=== PATIENT | male | born 1990 | race Caucasian/White ===

== ENCOUNTER 2022-04-25 09:17 | Inpatient (IN) | payer OTHER ==
[2022-04-25 09:34] VITALS: BMI 23.0
[2022-04-25] MEDS ORDERED: POLYETHYLENE GLYCOL (HEALTHYLAX) 3350 17 GM PACKET PO PRN (10:36)
[2022-04-25] MEDS ORDERED: NALOXONE HCL (KLOXXADO) 8 MG SPRAY NS PRN (10:36)
[2022-04-25] MEDS ORDERED: methaDONE HCL 10 MG TABLET (FOR DETOX USE ONLY) PO ONE (10:36)
[2022-04-25] MEDS ORDERED: NICOTINE POLACRILEX 2 MG GUM BUC PRN (10:36)
[2022-04-25] MEDS ORDERED: MAGNESIUM HYDROX 2400MG/30ML ORAL SUSPENSION 30 ML CUP PO PRN (10:36)
[2022-04-25] MEDS ORDERED: DICYCLOMINE HCL 10 MG CAPSULE PO PRN (10:36)
[2022-04-25] MEDS ORDERED: ACETAMINOPHEN 325 MG TABLET (FP) PO PRN ×2 (10:36)
[2022-04-25] MEDS ORDERED: BENZOCAINE/MENTHOL (CHLORASEPTIC ) LOZENGE MM PRN (10:36)
[2022-04-25] MEDS ORDERED: NICOTINE 10 MG CARTRIDGE (INHALER) IH PRN (10:36)
[2022-04-25] MEDS ORDERED: LOPERAMIDE HCL 2 MG CAPSULE PO PRN (10:36)
[2022-04-25] MEDS ORDERED: BISMUTH SUBSALICYLATE 524 MG/30 ML PO PRN (10:36)
[2022-04-25] MEDS ORDERED: methaDONE HCL 10 MG TABLET (FOR DETOX USE ONLY) ONE (11:08)
[2022-04-25] MEDS: METHOCARBAMOL 500 MG TABLET PO PRN ×2 (11:25→22:33)
[2022-04-25] MEDS: cloNIDine HCL 0.1 MG TABLET PO PRN (13:25)
[2022-04-25] MEDS: IBUPROFEN 600 MG TABLET (FP) PO PRN ×2 (13:25→22:33)
[2022-04-25] MEDS: IBUPROFEN 400 MG TABLET (FP) PO PRN (17:06)
[2022-04-25] MEDS: MELATONIN 5 MG TABLETS PO SCH (22:30)
[2022-04-25] MEDS: THIAMINE HCL 100 MG TABLET (FP) PO SCH (22:30)
[2022-04-26] MEDS: cloNIDine HCL 0.1 MG TABLET PO PRN (06:03)
[2022-04-26] MEDS: PRENATAL VITAMINS W/ FOLIC ACID TABLET (FP) PO SCH (11:44)
[2022-04-26] MEDS: METHOCARBAMOL 500 MG TABLET PO PRN (11:44)
[2022-04-26] MEDS: ASPIRIN 325 MG TABLET PO SCH (11:55)
[2022-04-26 12:35] LABS: HEMATOCRIT 37.4 % (35.4-49); HEMOGLOBIN 12.5 GM/dL (11.7-16.9); MCH 29.9 pg (25.7-33.7); MCHC 33.3 g/dl (32.0-35.9); MEAN CELL VOLUME 89.8 fl (80-96); PLATELET COUNT 273 10^3/uL (134-434); RBC 4.17 M/mm3 (4.00-5.60); RDW 13.7 % (11.9-15.9); WHITE BLOOD COUNT 5.6 K/mm3 (4.0-10.0)
[2022-04-26 13:43] LABS: ALBUMIN 2.9 g/dl (3.4-5.0); BLOOD UREA NITROGEN 15.2 mg/dL (7-18); HIV INTERPRETATION NEGATIVE (NEGATIVE)
[2022-04-26 13:44] LABS: CALCIUM 8.4 mg/dL (8.5-10.1)
[2022-04-26 13:46] LABS: CREATININE 0.8 mg/dL (0.55-1.3)
[2022-04-26 13:48] LABS: TOT PROT 5.8 g/dl (6.4-8.2)
[2022-04-26 13:49] LABS: BILIRUBIN,TOTAL 0.3 mg/dL (0.2-1)
[2022-04-26] MEDS: IBUPROFEN 400 MG TABLET (FP) PO PRN (17:33)
[2022-04-26] MEDS: MAG HYDROX/AL HYDROX/SIMETH 30 ML UNIT-DOSE CUP PO PRN (17:33)
[2022-04-26] MEDS ORDERED: TRIMETHOBENZAMIDE HCL 200MG/2ML INJ IM ONE (19:23)
[2022-04-26] MEDS: THIAMINE HCL 100 MG TABLET (FP) PO SCH (22:26)
[2022-04-26] MEDS: MELATONIN 5 MG TABLETS PO SCH (22:27)
[2022-04-27] MEDS: METHOCARBAMOL 500 MG TABLET PO PRN (10:00)
[2022-04-27] MEDS: PRENATAL VITAMINS W/ FOLIC ACID TABLET (FP) PO SCH (10:00)
[2022-04-27] MEDS ORDERED: methaDONE HCL 10 MG TABLET (FOR DETOX USE ONLY) PO ONE (10:00)
[2022-04-27] MEDS: ASPIRIN 325 MG TABLET PO SCH (10:02)
[2022-04-27] MEDS: IBUPROFEN 600 MG TABLET (FP) PO PRN (12:06)
[2022-04-27] MEDS: THIAMINE HCL 100 MG TABLET (FP) PO SCH (21:52)
[2022-04-27] MEDS: OLANZapine 10 MG TABLET PO SCH (21:52)
[2022-04-27] MEDS: MELATONIN 5 MG TABLETS PO SCH (21:54)
[2022-04-27] MEDS: MAG HYDROX/AL HYDROX/SIMETH 30 ML UNIT-DOSE CUP PO PRN (22:14)
[2022-04-28] MEDS: PRENATAL VITAMINS W/ FOLIC ACID TABLET (FP) PO SCH (10:04)
[2022-04-28] MEDS: METHOCARBAMOL 500 MG TABLET PO PRN (10:04)
[2022-04-28] MEDS: ASPIRIN 325 MG TABLET PO SCH (10:04)
[2022-04-28] MEDS: IBUPROFEN 600 MG TABLET (FP) PO PRN (14:00)
[2022-04-28] MEDS: OLANZapine 10 MG TABLET PO SCH (22:31)
[2022-04-28] MEDS: THIAMINE HCL 100 MG TABLET (FP) PO SCH (22:31)
[2022-04-28] MEDS: MELATONIN 5 MG TABLETS PO SCH (22:47)
[2022-04-29] MEDS ORDERED: methaDONE HCL 10 MG TABLET (FOR DETOX USE ONLY) PO ONE (10:00)
[2022-04-29] MEDS: PRENATAL VITAMINS W/ FOLIC ACID TABLET (FP) PO SCH (10:12)
[2022-04-29] MEDS: ASPIRIN 325 MG TABLET PO SCH (10:12)
[2022-04-29] MEDS: METHOCARBAMOL 500 MG TABLET PO PRN (10:13)
[2022-04-29] MEDS: MELATONIN 5 MG TABLETS PO SCH (23:21)
[2022-04-29] MEDS: OLANZapine 10 MG TABLET PO SCH (23:21)
[2022-04-29] MEDS: THIAMINE HCL 100 MG TABLET (FP) PO SCH (23:21)
[2022-04-30 09:35] VITALS: BP 95/61; PULSE 60; RESP 16; TEMP 98.3
[2022-04-30] MEDS: PRENATAL VITAMINS W/ FOLIC ACID TABLET (FP) PO SCH (10:26)
[2022-04-30] MEDS: ASPIRIN 325 MG TABLET PO SCH (10:26)
== END 2022-04-30 10:25 | disposition home or self-care (01) | DRG 773 ==
LOC: YASAS 09:17 → Y6N 11:04
PROVIDERS: ADMIT Allergy & Immunology; ATTEND Surgery
PROC: HZ2ZZZZ Detoxification Services for Substance Abuse Treatment (ICD-10-PCS; principal; 2022-04-25)
DX: F11.23 Opioid dependence with withdrawal (principal); F14.20 Cocaine dependence, uncomplicated; F17.210 Nicotine dependence, cigarettes, uncomplicated; F20.9 Schizophrenia, unspecified; F19.24 Other psychoactive substance dependence with psychoactive substance-induced mood disorder; Z86.19 Personal history of other infectious and parasitic diseases; Z59.00 Homelessness unspecified; Z56.0 Unemployment, unspecified; S82.891D Other fracture of right lower leg, subsequent encounter for closed fracture with routine healing; X58.XXXD Exposure to other specified factors, subsequent encounter
CPT/HCPCS: 36415; 80053; 83036; 85027; 86593; 86780; 87389; 93005; 93010; C9803-CS; U0003; U0005

== ENCOUNTER 2022-05-26 12:39 | Inpatient (IN) | payer OTHER ==
[2022-05-26 13:16] VITALS: BMI 22.5
[2022-05-26] MEDS ORDERED: cloNIDine HCL 0.1 MG TABLET PO ONE (13:52)
[2022-05-26] MEDS ORDERED: POLYETHYLENE GLYCOL (HEALTHYLAX) 3350 17 GM PACKET PO PRN (13:52)
[2022-05-26] MEDS ORDERED: BENZOCAINE/MENTHOL (CHLORASEPTIC ) LOZENGE MM PRN (13:52)
[2022-05-26] MEDS ORDERED: BISMUTH SUBSALICYLATE 262 MG/15 ML BTL PO PRN (13:52)
[2022-05-26] MEDS ORDERED: MAGNESIUM HYDROX 2400MG/30ML ORAL SUSPENSION 30 ML CUP PO PRN (13:52)
[2022-05-26] MEDS ORDERED: IBUPROFEN 400 MG TABLET (FP) PO PRN (13:52)
[2022-05-26] MEDS ORDERED: BUPRENORPHINE HCL 150 MCG, BUPRENORPHINE HCL 75 MCG BC ONE (13:52)
[2022-05-26] MEDS ORDERED: ACETAMINOPHEN 325 MG TABLET (FP) PO PRN (13:52)
[2022-05-26] MEDS ORDERED: MAG HYDROX/AL HYDROX/SIMETH 30 ML UNIT-DOSE CUP PO PRN (13:52)
[2022-05-26] MEDS ORDERED: DICYCLOMINE HCL 10 MG CAPSULE PO PRN (13:52)
[2022-05-26] MEDS ORDERED: BUPRENORPHINE HCL 150 MCG, BUPRENORPHINE HCL 75 MCG BC PRN (13:52)
[2022-05-26] MEDS ORDERED: ONDANSETRON *ODT* 4 MG TABLET SL PRN (13:52)
[2022-05-26] MEDS ORDERED: BENZONATATE 200 MG CAPSULE PO PRN (13:52)
[2022-05-26] MEDS ORDERED: NALOXONE HCL 0.4 MG/ML VIAL IM PRN (13:52)
[2022-05-26] MEDS ORDERED: IBUPROFEN 600 MG TABLET (FP) PO PRN (13:52)
[2022-05-26] MEDS ORDERED: LOPERAMIDE HCL 2 MG CAPSULE PO PRN (13:52)
[2022-05-26] MEDS ORDERED: guaiFENesin 600 MG TABLET.ER (FP) PO PRN (13:52)
[2022-05-26] MEDS ORDERED: NALOXONE HCL (KLOXXADO) 8 MG SPRAY NS PRN (13:52)
[2022-05-26] MEDS ORDERED: NICOTINE 10 MG CARTRIDGE (INHALER) IH PRN (13:52)
[2022-05-26] MEDS ORDERED: cloNIDine HCL 0.1 MG TABLET ONE (14:25)
[2022-05-26] MEDS ORDERED: BUPRENORPHINE HCL 150 MCG FILM BC ONE (14:25)
[2022-05-26] MEDS ORDERED: BUPRENORPHINE HCL 75 MCG FILM BC ONE (14:25)
[2022-05-26] MEDS: PRENATAL VITAMINS W/ FOLIC ACID TABLET (FP) PO SCH (14:29)
[2022-05-26] MEDS: NICOTINE 14 MG/24 HOURS TOPICAL PATCH TD SCH (14:33)
[2022-05-26] MEDS: diazePAM 5 MG TABLET PO PRN (17:12)
[2022-05-26 17:17] LABS: HEMATOCRIT 40.8 % (35.4-49); MCH 29.9 pg (25.7-33.7); MCHC 34.4 g/dl (32.0-35.9); MEAN CELL VOLUME 87.1 fl (80-96); MEAN PLT VOLUME 9.9 fl (7.5-11.1); PLATELET COUNT 263 10^3/uL (134-434); RBC 4.69 M/mm3 (4.00-5.60); RDW 14.3 % (11.9-15.9); WHITE BLOOD COUNT 5.7 K/mm3 (4.0-10.0)
[2022-05-26 17:47] LABS: CALCIUM 9.1 mg/dL (8.5-10.1)
[2022-05-26 17:48] LABS: BLOOD UREA NITROGEN 15.8 mg/dL (7-18)
[2022-05-26 17:49] LABS: ALBUMIN 3.5 g/dl (3.4-5.0)
[2022-05-26 17:51] LABS: CREATININE 0.7 mg/dL (0.55-1.3)
[2022-05-26 17:52] LABS: BILIRUBIN,TOTAL 0.3 mg/dL (0.2-1); TOT PROT 6.7 g/dl (6.4-8.2)
[2022-05-26] MEDS ORDERED: cloNIDine HCL 0.1 MG TABLET PO PRN (17:52)
[2022-05-26] MEDS: MELATONIN 5 MG TABLETS PO SCH (23:49)
[2022-05-26] MEDS: THIAMINE HCL 100 MG TABLET (FP) PO SCH (23:49)
[2022-05-27] MEDS ORDERED: BUPRENORPHINE HCL 150 MCG, BUPRENORPHINE HCL 75 MCG BC PRN
[2022-05-27] MEDS: BUPRENORPHINE HCL 150 MCG, BUPRENORPHINE HCL 75 MCG BC SCH ×2 (06:23→17:43)
[2022-05-27] MEDS: diazePAM 5 MG TABLET PO PRN (10:12)
[2022-05-27] MEDS: hydrOXYzine PAMOATE 25 MG CAPSULE (FP) PO PRN (10:12)
[2022-05-27] MEDS: METHOCARBAMOL 500 MG TABLET PO PRN ×2 (10:12→22:52)
[2022-05-27] MEDS: PRENATAL VITAMINS W/ FOLIC ACID TABLET (FP) PO SCH (11:08)
[2022-05-27] MEDS: NICOTINE 14 MG/24 HOURS TOPICAL PATCH TD SCH (11:08)
[2022-05-27] MEDS: THIAMINE HCL 100 MG TABLET (FP) PO SCH (22:51)
[2022-05-27] MEDS: MELATONIN 5 MG TABLETS PO SCH (22:51)
[2022-05-27] MEDS: OLANZapine 10 MG TABLET PO SCH (22:51)
[2022-05-28] MEDS: BUPRENORPHINE HCL 450 MCG FILM BC SCH ×2 (06:18→17:37)
[2022-05-28] MEDS: NICOTINE 14 MG/24 HOURS TOPICAL PATCH TD SCH (11:05)
[2022-05-28] MEDS: PRENATAL VITAMINS W/ FOLIC ACID TABLET (FP) PO SCH (11:05)
[2022-05-28] MEDS: diazePAM 5 MG TABLET PO PRN (11:14)
[2022-05-28] MEDS: METHOCARBAMOL 500 MG TABLET PO PRN (11:14)
[2022-05-28] MEDS: OLANZapine 10 MG TABLET PO SCH (23:21)
[2022-05-28] MEDS: MELATONIN 5 MG TABLETS PO SCH (23:21)
[2022-05-28] MEDS: THIAMINE HCL 100 MG TABLET (FP) PO SCH (23:21)
[2022-05-29] MEDS: BUPRENORPHINE/NALOXONE 4 MG/1 MG FILM PACKET SL SCH ×2 (05:50→17:07)
[2022-05-29] MEDS: METHOCARBAMOL 500 MG TABLET PO PRN (10:31)
[2022-05-29] MEDS: hydrOXYzine PAMOATE 25 MG CAPSULE (FP) PO PRN ×2 (10:31→22:26)
[2022-05-29] MEDS: PRENATAL VITAMINS W/ FOLIC ACID TABLET (FP) PO SCH (10:31)
[2022-05-29] MEDS: NICOTINE 14 MG/24 HOURS TOPICAL PATCH TD SCH (10:33)
[2022-05-29 18:06] VITALS: RESP 16
[2022-05-29 20:49] VITALS: BP 107/68; PULSE 79; TEMP 97.1
[2022-05-29] MEDS: THIAMINE HCL 100 MG TABLET (FP) PO SCH (22:24)
[2022-05-29] MEDS: MELATONIN 5 MG TABLETS PO SCH (22:24)
[2022-05-29] MEDS: OLANZapine 10 MG TABLET PO SCH (22:24)
[2022-05-30] MEDS ORDERED: BUPRENORPHINE/NALOXONE 8 MG/2 MG FILM PACKET SL ONE (06:00)
[2022-05-30] MEDS: PRENATAL VITAMINS W/ FOLIC ACID TABLET (FP) PO SCH (09:46)
[2022-05-30] MEDS: NICOTINE 14 MG/24 HOURS TOPICAL PATCH TD SCH (09:46)
== END 2022-05-30 12:30 | disposition home or self-care (01) | DRG 773 ==
LOC: YASAS 12:39 → Y6N 14:03
PROVIDERS: ADMIT Allergy & Immunology; ATTEND Surgery
PROC: HZ2ZZZZ Detoxification Services for Substance Abuse Treatment (ICD-10-PCS; principal; 2022-05-26)
DX: F11.23 Opioid dependence with withdrawal (principal); F14.20 Cocaine dependence, uncomplicated; F12.20 Cannabis dependence, uncomplicated; F17.210 Nicotine dependence, cigarettes, uncomplicated; F19.280 Other psychoactive substance dependence with psychoactive substance-induced anxiety disorder; F19.282 Other psychoactive substance dependence with psychoactive substance-induced sleep disorder; F20.9 Schizophrenia, unspecified; Z86.19 Personal history of other infectious and parasitic diseases; Z91.410 Personal history of adult physical and sexual abuse
CPT/HCPCS: 36415; 80053; 83036; 85027; 86593; 86780; C9803-CS; Q0162; U0003; U0005

== ENCOUNTER 2022-06-15 21:54 | Inpatient (IN) | payer OTHER ==
[2022-06-15 22:29] VITALS: BMI 22.2
[2022-06-16] MEDS ORDERED: POLYETHYLENE GLYCOL (HEALTHYLAX) 3350 17 GM PACKET PO PRN (00:23)
[2022-06-16] MEDS ORDERED: IBUPROFEN 600 MG TABLET (FP) PO PRN (00:23)
[2022-06-16] MEDS ORDERED: NICOTINE POLACRILEX 2 MG GUM BUC PRN (00:23)
[2022-06-16] MEDS ORDERED: AMMONIUM LACTATE 12% LOTION 225 GM BOTTLE TP PRN (00:23)
[2022-06-16] MEDS ORDERED: MAG HYDROX/AL HYDROX/SIMETH 30 ML UNIT-DOSE CUP PO PRN (00:23)
[2022-06-16] MEDS ORDERED: BENZOCAINE/MENTHOL (CHLORASEPTIC ) LOZENGE MM PRN (00:23)
[2022-06-16] MEDS ORDERED: IBUPROFEN 400 MG TABLET (FP) PO PRN (00:23)
[2022-06-16] MEDS ORDERED: BENZONATATE 200 MG CAPSULE PO PRN (00:23)
[2022-06-16] MEDS ORDERED: NALOXONE HCL (KLOXXADO) 8 MG SPRAY NS PRN (00:23)
[2022-06-16] MEDS ORDERED: LOPERAMIDE HCL 2 MG CAPSULE PO PRN (00:23)
[2022-06-16] MEDS ORDERED: COLLOIDAL OATMEAL 1 BAR EACH TP PRN (00:23)
[2022-06-16] MEDS ORDERED: ACETAMINOPHEN 325 MG TABLET (FP) PO PRN (00:23)
[2022-06-16] MEDS ORDERED: guaiFENesin 600 MG TABLET.ER (FP) PO PRN (00:23)
[2022-06-16] MEDS ORDERED: MAGNESIUM HYDROX 2400MG/30ML ORAL SUSPENSION 30 ML CUP PO PRN (00:23)
[2022-06-16] MEDS ORDERED: NALOXONE HCL 0.4 MG/ML VIAL IM PRN (00:23)
[2022-06-16] MEDS: PRENATAL VITAMINS W/ FOLIC ACID TABLET (FP) PO SCH ×2 (10:00→10:24)
[2022-06-16] MEDS: NICOTINE 21 MG/24 HOURS TOPICAL PATCH TD SCH (10:00)
[2022-06-16 10:58] LABS: HEMATOCRIT 40.9 % (35.4-49); MCH 30.1 pg (25.7-33.7); MCHC 34.3 g/dl (32.0-35.9); MEAN CELL VOLUME 87.7 fl (80-96); MEAN PLT VOLUME 9.9 fl (7.5-11.1); PLATELET COUNT 334 10^3/uL (134-434); RBC 4.66 M/mm3 (4.00-5.60); RDW 14.4 % (11.9-15.9); WHITE BLOOD COUNT 6.1 K/mm3 (4.0-10.0)
[2022-06-16 11:44] LABS: CALCIUM 8.7 mg/dL (8.5-10.1)
[2022-06-16 11:45] LABS: ALBUMIN 3.3 g/dl (3.4-5.0); BLOOD UREA NITROGEN 14.8 mg/dL (7-18)
[2022-06-16 11:48] LABS: CREATININE 0.8 mg/dL (0.55-1.3)
[2022-06-16 11:49] LABS: BILIRUBIN,TOTAL 0.6 mg/dL (0.2-1)
[2022-06-16 11:50] LABS: TOT PROT 6.3 g/dl (6.4-8.2)
[2022-06-16] MEDS: THIAMINE HCL 100 MG TABLET (FP) PO SCH (21:15)
[2022-06-16] MEDS: MELATONIN 5 MG TABLETS PO SCH (21:15)
[2022-06-16] MEDS: OLANZapine 10 MG TABLET PO SCH (21:15)
[2022-06-17] MEDS: PRENATAL VITAMINS W/ FOLIC ACID TABLET (FP) PO SCH (10:05)
[2022-06-17] MEDS: NICOTINE 21 MG/24 HOURS TOPICAL PATCH TD SCH (10:05)
[2022-06-17 15:10] LABS: URINE APPEARANCE CLOUDY; URINE COLOR YELLOW
[2022-06-17 15:11] LABS: URINE BILIRUBIN NEGATIVE (NEGATIVE); URINE GLUCOSE (UA) NEGATIVE (NEGATIVE); URINE KETONE NEGATIVE (NEGATIVE); URINE LEUK ESTERASE TRACE (NEGATIVE); URINE NITRITE NEGATIVE (NEGATIVE); URINE PROTEIN NEGATIVE (NEGATIVE); URINE UROBILINOGEN 0.2 mg/dL (0.2-1.0)
[2022-06-17 15:30] LABS: EPI CELLS 9 /uL (0-25.1); HYALINE CASTS 4 /uL (0-3.1); URINE BACTERIA 10 /uL (0-1359); URINE RBC 3 /uL (0-23.9); URINE WBC 38 /uL (0-25.8)
[2022-06-17] MEDS: MELATONIN 5 MG TABLETS PO SCH (21:12)
[2022-06-17] MEDS: THIAMINE HCL 100 MG TABLET (FP) PO SCH (21:12)
[2022-06-17] MEDS: OLANZapine 10 MG TABLET PO SCH (21:12)
[2022-06-18 06:57] VITALS: BP 130/72; PULSE 83; RESP 18; TEMP 97.7
[2022-06-18] MEDS: NICOTINE 21 MG/24 HOURS TOPICAL PATCH TD SCH (10:00)
[2022-06-18] MEDS: PRENATAL VITAMINS W/ FOLIC ACID TABLET (FP) PO SCH (10:00)
== END 2022-06-18 10:16 | disposition home or self-care (01) | DRG 772 ==
LOC: YASAS 21:54 → Y5N 06-16 02:04
PROVIDERS: ADMIT Allergy & Immunology; ATTEND Surgery
PROC: HZ42ZZZ Group Counseling for Substance Abuse Treatment, Cognitive-Behavioral (ICD-10-PCS; principal; 2022-06-16)
DX: F11.20 Opioid dependence, uncomplicated (principal); F14.20 Cocaine dependence, uncomplicated; F13.20 Sedative, hypnotic or anxiolytic dependence, uncomplicated; F12.20 Cannabis dependence, uncomplicated; F17.210 Nicotine dependence, cigarettes, uncomplicated; F19.282 Other psychoactive substance dependence with psychoactive substance-induced sleep disorder; F19.24 Other psychoactive substance dependence with psychoactive substance-induced mood disorder; F31.9 Bipolar disorder, unspecified; F20.9 Schizophrenia, unspecified; Z86.19 Personal history of other infectious and parasitic diseases
CPT/HCPCS: 36415; 80053; 81003; 85027; 86593; 86780; C9803-CS; U0003; U0005

== ENCOUNTER 2023-02-01 14:08 | Inpatient (IN) | payer OTHER ==
[2023-02-01 14:43] VITALS: BMI 20.3
[2023-02-01] MEDS ORDERED: BUPRENORPHINE HCL 150 MCG, BUPRENORPHINE HCL 75 MCG BC ONE (15:27)
[2023-02-01] MEDS ORDERED: ACETAMINOPHEN 325 MG TABLET (FP) PO PRN (15:27)
[2023-02-01] MEDS ORDERED: MAG HYDROX/AL HYDROX/SIMETH 30 ML UNIT-DOSE CUP PO PRN (15:27)
[2023-02-01] MEDS ORDERED: diazePAM 5 MG TABLET PO PRN (15:27)
[2023-02-01] MEDS ORDERED: LOPERAMIDE HCL 2 MG CAPSULE PO PRN (15:27)
[2023-02-01] MEDS ORDERED: BISMUTH SUBSALICYLATE 262 MG/15 ML BTL PO PRN (15:27)
[2023-02-01] MEDS ORDERED: MAGNESIUM HYDROX 2400MG/30ML ORAL SUSPENSION 30 ML CUP PO PRN (15:27)
[2023-02-01] MEDS ORDERED: NALOXONE HCL 0.4 MG/ML VIAL IM PRN (15:27)
[2023-02-01] MEDS ORDERED: BUPRENORPHINE HCL 150 MCG, BUPRENORPHINE HCL 75 MCG BC PRN (15:27)
[2023-02-01] MEDS ORDERED: guaiFENesin 600 MG TABLET.ER (FP) PO PRN (15:27)
[2023-02-01] MEDS ORDERED: NALOXONE HCL (KLOXXADO) 8 MG SPRAY NS PRN (15:27)
[2023-02-01] MEDS ORDERED: cloNIDine HCL 0.1 MG TABLET PO ONE (15:27)
[2023-02-01] MEDS ORDERED: POLYETHYLENE GLYCOL (HEALTHYLAX) 3350 17 GM PACKET PO PRN (15:27)
[2023-02-01] MEDS ORDERED: ONDANSETRON *ODT* 4 MG TABLET SL PRN (15:27)
[2023-02-01] MEDS ORDERED: BENZONATATE 200 MG CAPSULE PO PRN (15:27)
[2023-02-01] MEDS ORDERED: hydrOXYzine PAMOATE 25 MG CAPSULE (FP) PO PRN (15:27)
[2023-02-01] MEDS ORDERED: IBUPROFEN 400 MG TABLET (FP) PO PRN (15:27)
[2023-02-01] MEDS ORDERED: DICYCLOMINE HCL 10 MG CAPSULE PO PRN (15:27)
[2023-02-01] MEDS ORDERED: BUPRENORPHINE HCL 150 MCG FILM BC ONE (18:21)
[2023-02-01] MEDS ORDERED: cloNIDine HCL 0.1 MG TABLET ONE (18:22)
[2023-02-01] MEDS ORDERED: BUPRENORPHINE HCL 75 MCG FILM BC ONE (18:22)
[2023-02-01] MEDS: NICOTINE 14 MG/24 HOURS TOPICAL PATCH TD SCH (18:44)
[2023-02-01] MEDS: PRENATAL VITAMINS W/ FOLIC ACID TABLET (FP) PO SCH (18:55)
[2023-02-01] MEDS ORDERED: cloNIDine HCL 0.1 MG TABLET PO PRN (19:27)
[2023-02-01] MEDS: THIAMINE HCL 100 MG TABLET (FP) PO SCH (22:46)
[2023-02-01] MEDS: MELATONIN 5 MG TABLETS PO SCH (22:47)
[2023-02-02] MEDS ORDERED: BUPRENORPHINE HCL 150 MCG, BUPRENORPHINE HCL 75 MCG BC PRN
[2023-02-02] MEDS: BUPRENORPHINE HCL 150 MCG, BUPRENORPHINE HCL 75 MCG BC SCH ×2 (05:29→17:16)
[2023-02-02] MEDS: PRENATAL VITAMINS W/ FOLIC ACID TABLET (FP) PO SCH (10:19)
[2023-02-02] MEDS: NICOTINE 14 MG/24 HOURS TOPICAL PATCH TD SCH (10:20)
[2023-02-02 11:42] LABS: POTASSIUM 3.9 mmol/L (3.5-5.1)
[2023-02-02 11:47] LABS: CALCIUM 8.2 mg/dL (8.5-10.1)
[2023-02-02 11:48] LABS: ALBUMIN 3.1 g/dl (3.4-5.0); BLOOD UREA NITROGEN 8.5 mg/dL (7-18)
[2023-02-02 11:51] LABS: CREATININE 0.6 mg/dL (0.55-1.3)
[2023-02-02 11:52] LABS: BILIRUBIN,TOTAL 0.4 mg/dL (0.2-1); TOT PROT 5.8 g/dl (6.4-8.2)
[2023-02-02 12:09] LABS: HEMATOCRIT 43.7 % (35.4-49); HEMOGLOBIN 14.6 GM/dL (11.7-16.9); MCH 29.1 pg (25.7-33.7); MCHC 33.3 g/dl (32.0-35.9); MEAN CELL VOLUME 87.4 fl (80-96); MEAN PLT VOLUME 9.3 fl (7.5-11.1); PLATELET COUNT 254 10^3/uL (134-434); RBC 5.01 M/mm3 (4.00-5.60); RDW 14.9 % (11.9-15.9); WHITE BLOOD COUNT 6.6 K/mm3 (4.0-10.0)
[2023-02-02] MEDS: BENZOCAINE/MENTHOL (CHLORASEPTIC ) LOZENGE MM PRN (19:14)
[2023-02-02] MEDS: OLANZapine 10 MG TABLET PO SCH (22:30)
[2023-02-02] MEDS: THIAMINE HCL 100 MG TABLET (FP) PO SCH (22:30)
[2023-02-02] MEDS: MELATONIN 5 MG TABLETS PO SCH (22:31)
[2023-02-02] MEDS: IBUPROFEN 600 MG TABLET (FP) PO PRN (23:10)
[2023-02-03] MEDS: BUPRENORPHINE HCL 450 MCG FILM BC SCH ×2 (05:36→17:22)
[2023-02-03] MEDS: METHOCARBAMOL 500 MG TABLET PO PRN (10:38)
[2023-02-03] MEDS: PRENATAL VITAMINS W/ FOLIC ACID TABLET (FP) PO SCH (10:38)
[2023-02-03] MEDS: NICOTINE 14 MG/24 HOURS TOPICAL PATCH TD SCH (10:38)
[2023-02-03] MEDS: OLANZapine 10 MG TABLET PO SCH (22:26)
[2023-02-03] MEDS: THIAMINE HCL 100 MG TABLET (FP) PO SCH (22:26)
[2023-02-03] MEDS: MELATONIN 5 MG TABLETS PO SCH (22:27)
[2023-02-04] MEDS: BUPRENORPHINE/NALOXONE 4 MG/1 MG FILM PACKET SL SCH ×2 (06:39→17:56)
[2023-02-04] MEDS: NICOTINE 14 MG/24 HOURS TOPICAL PATCH TD SCH (10:41)
[2023-02-04] MEDS: PRENATAL VITAMINS W/ FOLIC ACID TABLET (FP) PO SCH (10:41)
[2023-02-04] MEDS: METHOCARBAMOL 500 MG TABLET PO PRN ×2 (10:42→22:06)
[2023-02-04] MEDS: BENZOCAINE/MENTHOL (CHLORASEPTIC ) LOZENGE MM PRN (10:44)
[2023-02-04] MEDS: IBUPROFEN 600 MG TABLET (FP) PO PRN (22:05)
[2023-02-04] MEDS: MELATONIN 5 MG TABLETS PO SCH (22:05)
[2023-02-04] MEDS: THIAMINE HCL 100 MG TABLET (FP) PO SCH (22:06)
[2023-02-04] MEDS: OLANZapine 10 MG TABLET PO SCH (22:06)
[2023-02-05] MEDS ORDERED: BUPRENORPHINE/NALOXONE 8 MG/2 MG FILM PACKET SL ONE (06:00)
[2023-02-05 09:32] VITALS: BP 115/55; PULSE 80; RESP 18; TEMP 97.1
[2023-02-05] MEDS: PRENATAL VITAMINS W/ FOLIC ACID TABLET (FP) PO SCH (10:19)
[2023-02-05] MEDS: NICOTINE 14 MG/24 HOURS TOPICAL PATCH TD SCH (10:19)
== END 2023-02-05 12:45 | disposition other institution (70) | DRG 773 ==
LOC: YASAS 14:08 → Y6N 17:37
PROVIDERS: ADMIT Allergy & Immunology; ATTEND Surgery
PROC: HZ2ZZZZ Detoxification Services for Substance Abuse Treatment (ICD-10-PCS; principal; 2023-02-01)
DX: F11.23 Opioid dependence with withdrawal (principal); F14.20 Cocaine dependence, uncomplicated; F12.20 Cannabis dependence, uncomplicated; F17.210 Nicotine dependence, cigarettes, uncomplicated; F31.9 Bipolar disorder, unspecified; F20.9 Schizophrenia, unspecified; F19.282 Other psychoactive substance dependence with psychoactive substance-induced sleep disorder; F19.24 Other psychoactive substance dependence with psychoactive substance-induced mood disorder; Z86.19 Personal history of other infectious and parasitic diseases; Z56.0 Unemployment, unspecified; Z59.00 Homelessness unspecified
CPT/HCPCS: 36415; 80053; 85027; 86593; 86780; 87635; 93005; 93010; Q0162

== ENCOUNTER 2023-04-28 13:39 | Inpatient (IN) | payer OTHER ==
[2023-04-28 14:53] VITALS: BMI 21.4
[2023-04-28] MEDS ORDERED: BENZONATATE 200 MG CAPSULE PO PRN (15:49)
[2023-04-28] MEDS ORDERED: guaiFENesin 600 MG TABLET.ER (FP) PO PRN (15:49)
[2023-04-28] MEDS ORDERED: BENZOCAINE/MENTHOL (CHLORASEPTIC ) LOZENGE MM PRN (15:49)
[2023-04-28] MEDS ORDERED: NICOTINE POLACRILEX 2 MG GUM BUC PRN (15:49)
[2023-04-28] MEDS ORDERED: NALOXONE HCL (KLOXXADO) 8 MG SPRAY NS PRN (15:49)
[2023-04-28] MEDS ORDERED: NALOXONE HCL 0.4 MG/ML VIAL IM PRN (15:49)
[2023-04-28] MEDS ORDERED: IBUPROFEN 400 MG TABLET (FP) PO PRN (15:49)
[2023-04-28] MEDS ORDERED: POLYETHYLENE GLYCOL (HEALTHYLAX) 3350 17 GM PACKET PO PRN (15:49)
[2023-04-28] MEDS ORDERED: LOPERAMIDE HCL 2 MG CAPSULE PO PRN (15:49)
[2023-04-28] MEDS: THIAMINE HCL 100 MG TABLET (FP) PO SCH (22:11)
[2023-04-28] MEDS: MELATONIN 5 MG TABLETS PO SCH (22:11)
[2023-04-29] MEDS: PRENATAL VITAMINS W/ FOLIC ACID TABLET (FP) PO SCH (10:06)
[2023-04-29] MEDS: FLU VACCINE (FLULAVAL) PF 60 MCG/0.5 ML SYRINGE 2023-2024 IM ONE (12:19)
[2023-04-29 12:49] LABS: HEMATOCRIT 40.7 % (35.4-49); HEMOGLOBIN 13.9 GM/dL (11.7-16.9); MCH 29.9 pg (25.7-33.7); MCHC 34.1 g/dl (32.0-35.9); MEAN CELL VOLUME 87.6 fl (80-96); MEAN PLT VOLUME 9.9 fl (7.5-11.1); PLATELET COUNT 252 10^3/uL (134-434); RBC 4.64 M/mm3 (4.00-5.60); RDW 13.9 % (11.9-15.9)
[2023-04-29 13:22] LABS: POTASSIUM 3.6 mmol/L (3.5-5.1)
[2023-04-29 13:29] LABS: CALCIUM 8.8 mg/dL (8.5-10.1)
[2023-04-29 13:30] LABS: ALBUMIN 3.3 g/dl (3.4-5.0); BLOOD UREA NITROGEN 6.8 mg/dL (7-18)
[2023-04-29 13:33] LABS: CREATININE 0.6 mg/dL (0.55-1.3)
[2023-04-29 13:34] LABS: BILIRUBIN,TOTAL 0.6 mg/dL (0.2-1)
[2023-04-29] MEDS: BUPRENORPHINE/NALOXONE 8 MG/2 MG FILM PACKET SL SCH (14:46)
[2023-05-01] MEDS: IBUPROFEN 600 MG TABLET (FP) PO PRN (11:17)
[2023-05-02 14:48] LABS: EPI CELLS 13 /uL (0-25.1); HYALINE CASTS 7 /uL (0-3.1); URINE APPEARANCE CLEAR; URINE BACTERIA 16 /uL (0-1359); URINE BILIRUBIN NEGATIVE (NEGATIVE); URINE COLOR YELLOW; URINE GLUCOSE (UA) NEGATIVE (NEGATIVE); URINE KETONE NEGATIVE (NEGATIVE); URINE LEUK ESTERASE 1+ (NEGATIVE); URINE NITRITE NEGATIVE (NEGATIVE); URINE PROTEIN NEGATIVE (NEGATIVE); URINE RBC 3 /uL (0-23.9); URINE WBC 49 /uL (0-25.8)
[2023-05-04] MEDS: TUBERCULIN PPD 5 TU/0.1ML VIAL ID ONE (13:36)
[2023-05-08] MEDS: MAGNESIUM HYDROX 2400MG/30ML ORAL SUSPENSION 30 ML CUP PO PRN (18:18)
[2023-05-09] MEDS: hydrOXYzine PAMOATE 25 MG CAPSULE (FP) PO PRN (01:38)
[2023-05-09] MEDS: MELATONIN 5 MG TABLETS PO ONE (01:38)
[2023-05-09] MEDS ORDERED: HYDROCORTISONE 1% TOPICAL LOTION 118 ML BOTTLE TP PRN (15:05)
[2023-05-09] MEDS: CLOTRIMAZOLE/BETAMET DIPROP TOPICAL CREAM 45 GM TUBE TP SCH (21:51)
[2023-05-09] MEDS ORDERED: CLOTRIMAZOLE/BETAMET DIPROP TOPICAL CREAM 45 GM TUBE TP SCH (22:00)
[2023-05-10] MEDS: OLANZapine 7.5 MG TABLET PO SCH (21:26)
[2023-05-16] MEDS ORDERED: OLANZapine 5 MG TABLET PO SCH (22:14)
[2023-05-16] MEDS: OLANZapine 5 MG TABLET PO SCH (22:30)
[2023-05-17] MEDS: MAG HYDROX/AL HYDROX/SIMETH 30 ML UNIT-DOSE CUP PO PRN (20:23)
[2023-05-25 16:37] VITALS: RESP 18
[2023-05-25] MEDS: ACETAMINOPHEN 325 MG TABLET (FP) PO PRN (16:37)
[2023-05-25] MEDS: FAMOTIDINE 20 MG TABLET PO ONE (17:13)
[2023-05-25] MEDS: BUPRENORPHINE/NALOXONE 8 MG/2 MG FILM PACKET SL SCH (21:10)
[2023-05-26 06:52] VITALS: BP 104/69; PULSE 95; TEMP 97.5
== END 2023-05-26 10:20 | disposition home or self-care (01) | DRG 772 ==
LOC: YASAS 13:39 → Y3NR 18:38 → Y5N 04-29 12:09
PROVIDERS: ADMIT Allergy & Immunology; ATTEND Psychiatry & Neurology Pain Medicine
PROC: HZ42ZZZ Group Counseling for Substance Abuse Treatment, Cognitive-Behavioral (ICD-10-PCS; principal; 2023-04-28)
DX: F11.20 Opioid dependence, uncomplicated (principal); F12.20 Cannabis dependence, uncomplicated; F15.10 Other stimulant abuse, uncomplicated; F17.210 Nicotine dependence, cigarettes, uncomplicated; F31.9 Bipolar disorder, unspecified; F20.9 Schizophrenia, unspecified; F19.24 Other psychoactive substance dependence with psychoactive substance-induced mood disorder; L30.4 Erythema intertrigo; Z86.19 Personal history of other infectious and parasitic diseases; Z59.02 Unsheltered homelessness; Z56.0 Unemployment, unspecified
CPT/HCPCS: 0241U-QW; 36415; 80053; 80305; 81003; 85027; 86593; 86780

== ENCOUNTER 2024-05-25 10:08 | Inpatient (IN) | payer OTHER ==
[2024-05-25 10:33] VITALS: BMI 26.7
[2024-05-25] MEDS ORDERED: POLYETHYLENE GLYCOL (HEALTHYLAX) 3350 17 GM PACKET PO PRN (12:10)
[2024-05-25] MEDS ORDERED: NALOXONE (NARCAN) HCL 4 MG/0.1 ML SPRAY NS PRN (12:10)
[2024-05-25] MEDS ORDERED: BISMUTH SUBSALICYLATE 524 MG/30 ML PO PRN (12:10)
[2024-05-25] MEDS ORDERED: LOPERAMIDE HCL 2 MG CAPSULE PO PRN (12:10)
[2024-05-25] MEDS ORDERED: BENZOCAINE/MENTHOL (CHLORASEPTIC ) LOZENGE MM PRN (12:10)
[2024-05-25] MEDS ORDERED: MAGNESIUM HYDROX 2400MG/30ML ORAL SUSPENSION 30 ML CUP PO PRN (12:10)
[2024-05-25] MEDS ORDERED: guaiFENesin 600 MG TABLET.ER (FP) PO PRN (12:10)
[2024-05-25] MEDS ORDERED: DICYCLOMINE HCL 10 MG CAPSULE PO PRN (12:10)
[2024-05-25] MEDS ORDERED: ONDANSETRON *ODT* 4 MG TABLET SL PRN (12:10)
[2024-05-25] MEDS ORDERED: BENZONATATE 200 MG CAPSULE PO PRN (12:10)
[2024-05-25] MEDS ORDERED: IBUPROFEN 400 MG TABLET (FP) PO PRN (12:10)
[2024-05-25] MEDS ORDERED: ACETAMINOPHEN 325 MG TABLET (FP) PO PRN (12:10)
[2024-05-25] MEDS ORDERED: methaDONE HCL 10 MG TABLET (FOR DETOX USE ONLY) ONE (12:31)
[2024-05-25] MEDS: methaDONE HCL 10 MG TABLET PO ONE (12:35)
[2024-05-25] MEDS: cloNIDine HCL 0.1 MG TABLET PO SCH (13:53)
[2024-05-25] MEDS: hydrOXYzine PAMOATE 25 MG CAPSULE (FP) PO PRN (17:09)
[2024-05-25] MEDS ORDERED: cloNIDine HCL 0.1 MG TABLET PO SCH (18:00)
[2024-05-25] MEDS: MAG HYDROX/AL HYDROX/SIMETH 30 ML UNIT-DOSE CUP PO PRN (18:33)
[2024-05-25] MEDS: NICOTINE POLACRILEX 2 MG GUM BUC PRN (18:35)
[2024-05-25] MEDS: METHOCARBAMOL 500 MG TABLET PO PRN (22:32)
[2024-05-25] MEDS: MELATONIN 5 MG TABLETS PO SCH (22:32)
[2024-05-25] MEDS: THIAMINE 100 MG TABLET PO SCH (22:32)
[2024-05-25] MEDS: methaDONE HCL 10 MG TABLET PO PRN (22:33)
[2024-05-26] MEDS ORDERED: methaDONE HCL 10 MG TABLET PO ONE (10:00)
[2024-05-26] MEDS: PRENATAL VITAMINS W/ FOLIC ACID TABLET (FP) PO SCH (10:07)
[2024-05-26] MEDS: methaDONE HCL 10 MG TABLET PO ONE (10:07)
[2024-05-26 13:25] LABS: HEMATOCRIT 40.1 % (40.1-51.0); HEMOGLOBIN 12.8 g/dL (13.7-17.5); MCHC 31.9 g/dl (32.3-36.5); MEAN CELL VOLUME 86.8 fl (79.0-92.2); MEAN PLT VOLUME 11.7 fl (9.4-12.4); PLATELET COUNT 285 x10^3/uL (163-337); RDW 14.1 % (12.0-15.6)
[2024-05-26 13:32] LABS: POTASSIUM 3.8 mmol/L (3.5-5.1)
[2024-05-26 13:35] LABS: ALBUMIN 4.1 g/dl (3.4-5.0); BLOOD UREA NITROGEN 19.2 mg/dL (7-18); CALCIUM 9.3 mg/dL (8.5-10.1)
[2024-05-26 13:39] LABS: CREATININE 0.9 mg/dL (0.55-1.3)
[2024-05-26 13:40] LABS: BILIRUBIN,TOTAL 0.5 mg/dL (0.2-1); TOT PROT 7.5 g/dl (6.4-8.2)
[2024-05-27] MEDS ORDERED: cloNIDine HCL 0.1 MG TABLET PO PRN
[2024-05-27] MEDS ORDERED: methaDONE 40 MG, methaDONE 10 MG PO ONE (10:00)
[2024-05-27] MEDS ORDERED: methaDONE HCL 10 MG TABLET PO ONE (10:00)
[2024-05-27] MEDS ORDERED: methaDONE HCL 10 MG TABLET (FOR DETOX USE ONLY) PO PRN (10:16)
[2024-05-27] MEDS: methaDONE HCL 10 MG TABLET (FOR DETOX USE ONLY) PO ONE (10:18)
[2024-05-27] MEDS: methaDONE HCL 40 MG DISPERSABLE TABLET PO ONE (10:23)
[2024-05-27] MEDS: ARIPiprazole 10 MG TABLET PO SCH (13:57)
[2024-05-27] MEDS: cloNIDine HCL 0.1 MG TABLET PO PRN (18:10)
[2024-05-27] MEDS: BUPRENORPHINE/NALOXONE 0.5 MG/0.125 MG FILM SL ONE (22:19)
[2024-05-28] MEDS ORDERED: methaDONE HCL 10 MG TABLET PO ONE (10:00)
[2024-05-28] MEDS ORDERED: methaDONE HCL 40 MG DISPERSABLE TABLET PO ONE (10:00)
[2024-05-28] MEDS: BUPRENORPHINE/NALOXONE 0.5 MG/0.125 MG FILM SL SCH (10:19)
[2024-05-28 11:01] LABS: ABSOLUTE IMMATURE GRANULOCYTES 0.01 x10^3/uL (0.0-0.031); BASOPHILS # 0.03 x10^3/uL (0.01-0.08); EOSINOPHIL % 9.5 % (0.8-7.0); EOSINOPHILS # 0.69 x10^3/uL (0.04-0.54); HEMATOCRIT 41.4 % (40.1-51.0); HEMOGLOBIN 13.3 g/dL (13.7-17.5); MCHC 32.1 g/dl (32.3-36.5); MEAN CELL VOLUME 87.7 fl (79.0-92.2); MEAN PLT VOLUME 11.1 fl (9.4-12.4); MONOCYTE # 0.57 x10^3/uL (0.30-0.82); MONOCYTE % 7.9 % (5.3-12.2); PLATELET COUNT 255 x10^3/uL (163-337); RDW 13.6 % (12.0-15.6)
[2024-05-29] MEDS: methaDONE HCL 10 MG TABLET (FOR DETOX USE ONLY) PO ONE (09:56)
[2024-05-29] MEDS: BUPRENORPHINE/NALOXONE 2 MG/0.5 MG FILM PACKET SL SCH (09:58)
[2024-05-29] MEDS ORDERED: methaDONE HCL 10 MG TABLET PO ONE (10:00)
[2024-05-29] MEDS ORDERED: methaDONE HCL 40 MG DISPERSABLE TABLET PO ONE (10:00)
[2024-05-29] MEDS ORDERED: methaDONE 40 MG, methaDONE 20 MG PO ONE (10:00)
[2024-05-29] MEDS ORDERED: methaDONE HCL 10 MG TABLET (FOR DETOX USE ONLY) PO ONE (10:00)
[2024-05-30] MEDS: BUPRENORPHINE/NALOXONE 4 MG/1 MG FILM PACKET SL SCH (09:13)
[2024-05-30] MEDS ORDERED: methaDONE HCL 10 MG TABLET PO ONE (10:00)
[2024-05-30] MEDS ORDERED: methaDONE HCL 40 MG DISPERSABLE TABLET PO ONE (10:00)
[2024-05-30] MEDS: IBUPROFEN 600 MG TABLET (FP) PO PRN (16:45)
[2024-05-31] MEDS ORDERED: methaDONE HCL 10 MG TABLET (FOR DETOX USE ONLY) PO ONE (10:00)
[2024-05-31] MEDS ORDERED: methaDONE HCL 40 MG DISPERSABLE TABLET PO ONE (10:00)
[2024-05-31] MEDS: BUPRENORPHINE/NALOXONE 8 MG/2 MG FILM PACKET SL SCH (10:07)
[2024-05-31] MEDS: methaDONE HCL 10 MG TABLET (FOR DETOX USE ONLY) PO ONE (10:07)
[2024-06-01 06:51] VITALS: BP 102/60; PULSE 81; RESP 17; TEMP 97.8
[2024-06-01] MEDS: BUPRENORPHINE/NALOXONE 8 MG/2 MG FILM PACKET SL SCH (09:43)
== END 2024-06-01 09:56 | disposition home or self-care (01) | DRG 773 ==
LOC: YASAS 10:08 → Y6N 12:16
PROVIDERS: ADMIT Allergy & Immunology; ATTEND Allergy & Immunology
PROC: HZ2ZZZZ Detoxification Services for Substance Abuse Treatment (ICD-10-PCS; principal; 2024-05-25)
DX: F11.23 Opioid dependence with withdrawal (principal); F14.20 Cocaine dependence, uncomplicated; F12.20 Cannabis dependence, uncomplicated; F17.210 Nicotine dependence, cigarettes, uncomplicated; F31.9 Bipolar disorder, unspecified; F20.9 Schizophrenia, unspecified; F19.282 Other psychoactive substance dependence with psychoactive substance-induced sleep disorder; F19.280 Other psychoactive substance dependence with psychoactive substance-induced anxiety disorder; F32.A Depression, unspecified; Z59.02 Unsheltered homelessness
CPT/HCPCS: 36415; 80053; 80305; 80307; 85025; 85027; 86593; 86780; 93005; 93010

== ENCOUNTER 2024-10-11 08:44 | Inpatient (IN) | payer OTHER ==
[2024-10-11 08:58] VITALS: BMI 27.9
[2024-10-11] MEDS ORDERED: BISMUTH SUBSALICYLATE 524 MG/30 ML PO PRN (09:27)
[2024-10-11] MEDS ORDERED: NALOXONE (NARCAN) HCL 4 MG/0.1 ML SPRAY NS PRN (09:27)
[2024-10-11] MEDS ORDERED: guaiFENesin 600 MG TABLET.ER (FP) PO PRN (09:27)
[2024-10-11] MEDS ORDERED: BENZONATATE 200 MG CAPSULE PO PRN (09:27)
[2024-10-11] MEDS ORDERED: POLYETHYLENE GLYCOL (HEALTHYLAX) 3350 17 GM PACKET PO PRN (09:27)
[2024-10-11] MEDS ORDERED: IBUPROFEN 400 MG TABLET (FP) PO PRN (09:27)
[2024-10-11] MEDS ORDERED: MAGNESIUM HYDROX 2400MG/30ML ORAL SUSPENSION 30 ML CUP PO PRN (09:27)
[2024-10-11] MEDS ORDERED: ACETAMINOPHEN 325 MG TABLET (FP) PO PRN (09:27)
[2024-10-11] MEDS ORDERED: MAG HYDROX/AL HYDROX/SIMETH 30 ML UNIT-DOSE CUP PO PRN (09:27)
[2024-10-11] MEDS ORDERED: BENZOCAINE/MENTHOL (CHLORASEPTIC ) LOZENGE MM PRN (09:27)
[2024-10-11] MEDS ORDERED: NICOTINE 14 MG/24 HOURS TOPICAL PATCH TD ONE (09:55)
[2024-10-11] MEDS ORDERED: PRENATAL VITAMINS W/ FOLIC ACID TABLET (FP) PO ONE (09:56)
[2024-10-11] MEDS: PRENATAL VITAMINS W/ FOLIC ACID TABLET (FP) PO SCH (10:08)
[2024-10-11] MEDS: NICOTINE 14 MG/24 HOURS TOPICAL PATCH TD SCH (10:08)
[2024-10-11] MEDS: NICOTINE POLACRILEX 2 MG GUM BUC PRN (10:52)
[2024-10-11] MEDS: MELATONIN 5 MG TABLETS PO SCH (22:36)
[2024-10-11] MEDS: THIAMINE 100 MG TABLET PO SCH (22:36)
[2024-10-11] MEDS: IBUPROFEN 600 MG TABLET (FP) PO PRN (22:37)
[2024-10-12 10:33] LABS: MCHC 32.7 g/dl (32.3-36.5); MEAN CELL VOLUME 87.6 fl (79.0-92.2); MEAN PLT VOLUME 11.7 fl (9.4-12.4); RDW 13.5 % (12.0-15.6)
[2024-10-12 11:00] LABS: GLUCOSE,RANDOM 126.0 mg/dL (74-106); TOT PROT 6.3 g/dl (6.4-8.2)
[2024-10-12 11:01] LABS: CO2 27.0 mmol/L (21-32)
[2024-10-12 11:03] LABS: ALK PHOS 83.0 U/L (40-150)
[2024-10-12 11:06] LABS: CREATININE 0.76 mg/dL (0.55-1.3); SGOT/AST 28.0 U/L (5-34); SGPT/ALT 29.0 U/L (0-55)
[2024-10-12 11:12] LABS: SYPHILIS W/ RPR CONF REACTIVE (NONREACTIVE)
[2024-10-12] MEDS: LOPERAMIDE HCL 2 MG CAPSULE PO PRN (20:55)
[2024-10-12] MEDS: DICYCLOMINE HCL 10 MG CAPSULE PO PRN (22:07)
[2024-10-12] MEDS: MIRTAZAPINE 15 MG TABLET (FP) PO SCH (22:07)
[2024-10-12] MEDS: METHOCARBAMOL 500 MG TABLET PO PRN (22:07)
[2024-10-13] MEDS: hydrOXYzine PAMOATE 25 MG CAPSULE (FP) PO PRN (17:42)
[2024-10-13] MEDS: ONDANSETRON *ODT* 4 MG TABLET SL PRN (18:31)
[2024-10-13 23:50] LABS: RPR REFLEX REACTIVE 1:1 (NONREACTIVE)
[2024-10-15] MEDS ORDERED: hydrOXYzine PAMOATE 25 MG CAPSULE (FP) PO PRN (14:34)
[2024-10-15] MEDS: ACAMPROSATE CALCIUM 333 MG TABLET.DR PO SCH (14:59)
[2024-10-15 21:09] VITALS: RESP 16
[2024-10-16 08:40] VITALS: BP 114/66; PULSE 76; TEMP 98.4
== END 2024-10-16 09:17 | disposition other institution (70) | DRG 773 ==
LOC: YASAS 08:44 → Y6N 09:48
PROVIDERS: ADMIT Allergy & Immunology; ATTEND Counselor Addiction (Substance Use Disorder)
PROC: HZ2ZZZZ Detoxification Services for Substance Abuse Treatment (ICD-10-PCS; principal; 2024-10-11)
DX: F11.23 Opioid dependence with withdrawal (principal); F14.10 Cocaine abuse, uncomplicated; F12.20 Cannabis dependence, uncomplicated; F17.210 Nicotine dependence, cigarettes, uncomplicated; F31.9 Bipolar disorder, unspecified; F20.9 Schizophrenia, unspecified; F19.282 Other psychoactive substance dependence with psychoactive substance-induced sleep disorder; F19.280 Other psychoactive substance dependence with psychoactive substance-induced anxiety disorder; F19.24 Other psychoactive substance dependence with psychoactive substance-induced mood disorder; Z86.19 Personal history of other infectious and parasitic diseases; Z59.02 Unsheltered homelessness
CPT/HCPCS: 36415; 80053; 80307; 85027; 86593; 86780; 93005; 93010; Q0162